=== PATIENT | female | born 1965 | race Caucasian/White ===

== ENCOUNTER 2022-04-10 14:22 | Outpatient (RCR) | payer BC, SELFPAY | END 2022-09-11 09:20 | disposition home or self-care (01) | PROVIDERS: PCP Physician Assistant Medical; Visit Provider Physician Assistant Medical | DX: H81.13 Benign paroxysmal vertigo, bilateral (principal); Z51.89 Encounter for other specified aftercare | CPT/HCPCS: 97112 ==

== ENCOUNTER 2024-03-03 08:00 | Outpatient (CLI) | payer BC, SELFPAY | END 2024-03-03 08:01 | disposition home or self-care (01) | LOC: NFLDREF 03-23 07:49 | PROVIDERS: PCP Physician Assistant Medical; Referring Provider Physician Assistant Medical; Visit Provider Physician Assistant Medical | DX: R41.3 Other amnesia (principal) | CPT/HCPCS: 82607; 84443 ==

== ENCOUNTER 2024-03-15 06:23 | Outpatient (CLI) | payer BC, SELFPAY ==
--- NOTE | 2024-03-15 08:00 | W.ANESCHARGE ---
Anesthesia Charges Start Date/Time Anesthesia Start Date: 03/15/24 Anesthesia Start Time: 07:30 Stop Date/Time Anesthesia Stop Date: 03/15/24 Anesthesia Stop Time: 07:58
--- NOTE | 2024-03-15 08:05 | W.ANESCHARGE ---
Anesthesia Charges Start Date/Time Anesthesia Start Date: 03/15/24 Anesthesia Start Time: 07:30 Stop Date/Time Anesthesia Stop Date: 03/15/24 Anesthesia Stop Time: 07:58
== END 2024-03-15 06:24 | disposition home or self-care (01) ==
LOC: OP CLINIC 06:24
PROVIDERS: PCP Family Medicine; Visit Provider Surgery
DX: Z12.11 Encounter for screening for malignant neoplasm of colon (principal); Z83.719 Family history of colon polyps, unspecified
CPT/HCPCS: 00811; 00812; 45378; J2704

== ENCOUNTER 2024-03-21 09:48 | Outpatient (CLI) | payer BC, SELFPAY ==
--- NOTE | 2024-03-21 10:15 | CRLHL7_ITS ---
For Patients: As a result of the Century Cures Act, medical imaging exams and procedure reports are released immediately into your electronic medical record. You may view this report before your referring provider. If you have questions, please contact your health care provider. Indication: Memory loss. Technique: Noncontrast sagittal T1, axial FLAIR, T2, diffusion weighted sequences are provided. No comparisons. Findings: The ventricles, sulci and gyri are normal size, shape and contour for age. The midline structures are centrally located with no evidence of shift. There are no suspicious intra or extra-axial fluid collections. No region of restricted diffusion. Expected flow voids in the cavernous carotids and basilar artery. Mild scattered foci of increased T2 signal within the supratentorial white matter that are non-specific. Impression: 1. No radiographic evidence of acute intracranial abnormalities. 2. Mild scattered supratentorial white matter change that is non-specific. Differential considerations include changes related to diabetes, hypertension, collagen vascular disease or migranous headaches. Dictated by Julián Villanueva MD @ 03/21/2024 3:04:39 PM (Electronically Signed)
== END 2024-03-21 09:49 | disposition home or self-care (01) ==
LOC: MRI 09:49
PROVIDERS: PCP Family Medicine; Visit Provider Physician Assistant Medical
DX: R41.3 Other amnesia (principal)
CPT/HCPCS: 70551